=== PATIENT | female | born 1980 | race Caucasian/White ===

== ENCOUNTER 2019-06-08 00:16 | Inpatient (IN) | payer MEDICAID ==
[~2019-06-08] VITALS: Ht 162.6 cm; Wt 79.4 kg
[2019-06-08] MEDS ORDERED: ALBUTEROL SULF8.5 GM INH (00:32)
[2019-06-08] MEDS ORDERED: KEPPRA1000 MG PO (00:32)
[2019-06-08] MEDS ORDERED: TRILEPTAL600 MG PO (00:32)
[2019-06-08] MEDS ORDERED: DOXYCYCLINE HY100 M2 PO (00:32)
[2019-06-08 01:07] LABS: BASOPHILS 0.2 % (0-2); EOSINOPHILS 1.7 % (0-7); HEMATOCRIT 37.8 % (36.0-48.0); HEMOGLOBIN 13.2 g/dL (12-16); IMMATURE GRANULOCYTES 0.5 % (0-5); LYMPHOCYTES 14.1 % (15-50); MCH 30.6 pg (26.0-34.0); MCHC 34.9 g/dL (31.0-37.0); MCV 87.7 fL (80.0-100.0); MONOCYTES 5.5 % (2-11); PLATELET COUNT 346 10x3/uL (130-400); RBC 4.31 10x6/uL (4.00-5.40); RDW 12.2 % (11.5-14.5); WBC 8.1 10x3/uL (4.8-10.8)
[2019-06-08 01:13] LABS: APTT 30.4 SECONDS (22.8-39.4); INR 1.07 (0.85-1.17); PROTIME 13.4 SECONDS (11.6-15.0)
[2019-06-08 01:18] LABS: D-DIMER-QUANTITATIVE 0.63 ug/mLFEU (0.20-0.54)
[2019-06-08 01:28] LABS: ALBUMIN 3.6 g/dL (3.4-5.0); ALKALINE PHOSPHATASE 108 U/L (46-116); ALT (SGPT) 42 U/L (10-68); BILIRUBIN - TOTAL 0.44 mg/dL (0.2-1.3); CALC OSMOLALITY 262 mosm/kg (275-300); CALCIUM 8.4 mg/dL (8.5-10.1); CARBON DIOXIDE 28.9 mmol/L (21.0-32.0); CHLORIDE - SERUM 94 mmol/L (98-107); CKMB 0.2 U/L (0.0-3.6); CREATINE KINASE 85 UL (21-215); CREATININE - SERUM 0.6 mg/dL (0.6-1.3); GLUCOSE 101 mg/dL (74-106); PRO BNP 88 pg/mL (0-125); PROTEIN - SERUM 7.8 g/dL (6.4-8.2); SODIUM 133 mmol/L (136-145); UREA NITROGEN 3 mg/dL (7-18); eGFR NON AFRICAN AMERICAN > 90 mL/min (90-120)
[2019-06-08 01:29] LABS: TROPONIN-I < 0.017 ng/mL (0.000-0.060)
[2019-06-08 01:31] LABS: POTASSIUM - SERUM 2.6 mmol/L (3.5-5.1)
--- NOTE | 2019-06-08 03:41 | NUR ---
REC'D. TO ROOM 2109 VIA WC.02 2L NC SATS 96%.ENCOURAGED TO BREATH IN THRU NOSE OUT THRU MOUTH TO SLOW BREATHING AND HEART RATE DOWN WHICH IS 101 C/O SOME CHEST DISCOMFORT COUPLE DAYS PRIOR TO ADMISSION TIGHT FEELING WHEN COUGHING.NO DISTRESS OBSERVED AT PRESENT TIME.ON HANGING ZITHROMAX BECAME NAUSEATED NO EMESIS. STATES AFTER ABX WAS HUNG STARTED FEELING THIS WAY. ABX STOPPED. WITHIN 15MIN STATES FEELS SO MUCH BETTER.REPORTED TO ARIELLE MCDONALD. COOL CLOTH TO FOREHEAD.
[2019-06-08 03:44] VITALS: BP 127/72; BMI 30.2
[2019-06-08 04:56] VITALS: BP 105/61
[2019-06-08 06:23] LABS: BASOPHILS 0.1 % (0-2); EOSINOPHILS 0.3 % (0-7); HEMATOCRIT 35.9 % (36.0-48.0); HEMOGLOBIN 12.5 g/dL (12-16); IMMATURE GRANULOCYTES 0.7 % (0-5); LYMPHOCYTES 8.3 % (15-50); MCH 30.6 pg (26.0-34.0); MCHC 34.8 g/dL (31.0-37.0); MCV 87.8 fL (80.0-100.0); MEAN PLATELET VOLUME 10.1 fL (7.4-10.4); MONOCYTES 2.8 % (2-11); NEUTROPHILS 87.8 % (40-80); PLATELET COUNT 329 10x3/uL (130-400); RBC 4.09 10x6/uL (4.00-5.40); RDW 12.3 % (11.5-14.5); WBC 7.2 10x3/uL (4.8-10.8)
[2019-06-08 06:27] LABS: CALC OSMOLALITY 271 mosm/kg (275-300); CALCIUM 8.5 mg/dL (8.5-10.1); CARBON DIOXIDE 28.6 mmol/L (21.0-32.0); CHLORIDE - SERUM 100 mmol/L (98-107); CREATININE - SERUM 0.5 mg/dL (0.6-1.3); GLUCOSE 132 mg/dL (74-106); MAGNESIUM - SERUM 1.7 mg/dL (1.8-2.4); PHOSPHOROUS 3.5 mg/dL (2.5-4.9); POTASSIUM - SERUM 3.4 mmol/L (3.5-5.1); SODIUM 137 mmol/L (136-145); UREA NITROGEN 2 mg/dL (7-18); eGFR NON AFRICAN AMERICAN > 90 mL/min (90-120)
--- NOTE | 2019-06-08 08:18 | NUR ---
REPORT RECIEVED. PT SITTING HIGH FOWLERS IN BED. RR EVEN AND UNLABORED ON 2L NC. SHE HAS A L AC PIV INFUSING NS@125. BED LOCKED AND IN LOWEST POSITION, CALL LIGHT WITHIN REACH. WILL CTM
[2019-06-08 12:20] VITALS: BP 106/52
[2019-06-08 12:27] VITALS: BP 123/59
[2019-06-08 13:26] LABS: APPEARANCE CLEAR (CLEAR); BACTERIA FEW /hpf (NEGATIVE); BILIRUBIN NEGATIVE (NEGATIVE); COLOR YELLOW (YELLOW); EPITHELIAL CELLS 0-5 /hpf (0-5); GLUCOSE NEGATIVE (NEGATIVE); KETONE MODERATE mg/dL (NEGATIVE); MUCUS <1+ /lpf (NONE SEEN); NITRITE NEGATIVE (NEGATIVE); PROTEIN NEGATIVE (NEGATIVE); RED CELLS - URINE 0-5 /hpf (0-5); UROBILINOGEN NORMAL (NORMAL); WHITE CELLS - URINE RARE /hpf (NEGATIVE)
[2019-06-08 15:58] VITALS: BP 113/65
--- NOTE | 2019-06-08 16:10 | NUR ---
I have reviewed this patient and I concur with the Shift Assessment completed by the Licensed Practical Nurse today this shift.
--- NOTE | 2019-06-08 19:20 | NUR ---
REPORT RECEIVED, WILL CONTINUE POC. PATIENT IS AAOX4, UP IN ROOM. NO S/S OF DISTRESS NOTED, RR EVEN BUT LABORED ON 5L HI FLOW. PATIENT DENIES NEEDS AT THIS TIME. CL IN REACH, BED LOCKED AND LOWERED. WILL CTM.
[2019-06-08 20:39] VITALS: BP 122/67
[2019-06-09 00:15] VITALS: BP 121/75
--- NOTE | 2019-06-09 03:09 | NUR ---
I have reviewed this patient and I concur with the Shift Assessment completed by the Licensed Practical Nurse today this shift.
[2019-06-09 04:45] VITALS: BP 127/78
[2019-06-09 05:42] LABS: BASOPHILS 0.2 % (0-2); EOSINOPHILS 0 % (0-7); HEMATOCRIT 35.8 % (36.0-48.0); HEMOGLOBIN 11.8 g/dL (12-16); IMMATURE GRANULOCYTES 0.7 % (0-5); LYMPHOCYTES 10.8 % (15-50); MEAN PLATELET VOLUME 10.4 fL (7.4-10.4); MONOCYTES 4.7 % (2-11); NEUTROPHILS 83.6 % (40-80); PLATELET COUNT 358 10x3/uL (130-400); RBC 3.93 10x6/uL (4.00-5.40); RDW 12.8 % (11.5-14.5)
[2019-06-09 05:48] LABS: MCV 91.1 fL (80.0-100.0); WBC 9.9 10x3/uL (4.8-10.8)
[2019-06-09 06:20] LABS: CALC OSMOLALITY 278 mosm/kg (275-300); CALCIUM 8.3 mg/dL (8.5-10.1); CARBON DIOXIDE 27.8 mmol/L (21.0-32.0); CHLORIDE - SERUM 105 mmol/L (98-107); CREATININE - SERUM 0.6 mg/dL (0.6-1.3); GLUCOSE 145 mg/dL (74-106); PHOSPHOROUS 3.7 mg/dL (2.5-4.9); SODIUM 140 mmol/L (136-145); eGFR NON AFRICAN AMERICAN > 90 mL/min (90-120)
[2019-06-09 06:24] LABS: UREA NITROGEN 3 mg/dL (7-18)
[2019-06-09 07:50] VITALS: BP 112/65
--- NOTE | 2019-06-09 07:51 | NUR ---
PT AWAKE AND ORIENTED, C/O DIFFICULTY BREATHING. SHORTNESS OF BREATH EVIDENT WHEN PT TRIES TO SPEAK. OXYGEN SATS ARE FINE. NO OTHER COMPLAINTS/CONCERNS VOICED AT THIS TIME. CL IN REACH, SRX2.
--- NOTE | 2019-06-09 08:26 | NUR ---
PT STATES THAT SHE TAKES 900 OF KEPPERA A DAY AND THAT WE ARE NOT GIVING HER THE PERCISE DOSE. WILL REMEDY.
[2019-06-09 10:47] VITALS: BP 110/73
--- NOTE | 2019-06-09 12:48 | NUR ---
I have reviewed this patient and I concur with the Shift Assessment completed by the Licensed Practical Nurse today this shift.
[2019-06-09 15:14] VITALS: BP 125/71
[2019-06-09 20:30] VITALS: BP 111/68
[2019-06-10 00:15] VITALS: BP 122/73
[2019-06-10 04:18] VITALS: BP 114/62
--- NOTE | 2019-06-10 05:44 | NUR ---
IV D/C TO LEFT AC. CATHETER TIP INTACT. 22G IV STARTED TO RIGHT WRIST.
[2019-06-10 06:01] LABS: CALC OSMOLALITY 268 mosm/kg (275-300); CALCIUM 8.3 mg/dL (8.5-10.1); CHLORIDE - SERUM 101 mmol/L (98-107); CREATININE - SERUM 0.7 mg/dL (0.6-1.3); GLUCOSE 120 mg/dL (74-106); MAGNESIUM - SERUM 1.8 mg/dL (1.8-2.4); PHOSPHOROUS 3.1 mg/dL (2.5-4.9); POTASSIUM - SERUM 3.6 mmol/L (3.5-5.1); SODIUM 136 mmol/L (136-145); eGFR NON AFRICAN AMERICAN > 90 mL/min (90-120)
[2019-06-10 06:03] LABS: UREA NITROGEN 2 mg/dL (7-18)
[2019-06-10 06:57] LABS: BASOPHILS 0.2 % (0-2); EOSINOPHILS 0 % (0-7); HEMATOCRIT 34.6 % (36.0-48.0); HEMOGLOBIN 11.5 g/dL (12-16); IMMATURE GRANULOCYTES 1.5 % (0-5); LYMPHOCYTES 12.7 % (15-50); MCH 30.7 pg (26.0-34.0); MCHC 33.2 g/dL (31.0-37.0); MCV 92.3 fL (80.0-100.0); MEAN PLATELET VOLUME 10.9 fL (7.4-10.4); MONOCYTES 4.2 % (2-11); NEUTROPHILS 81.4 % (40-80); PLATELET COUNT 413 10x3/uL (130-400); RBC 3.75 10x6/uL (4.00-5.40); WBC 9.9 10x3/uL (4.8-10.8)
--- NOTE | 2019-06-10 07:03 | NUR ---
PT AWAKE AND ORIEITED, LYING INBED WHEN I WALKED IN. PT IS WORRIED ABOUT INCREASING THE RATE OF HER N/S D/T HER NEW RIGHT WRIST I/V. SHE THINKS IT WILL HURT AND REQUESTS WE WAIT TO INCREASE THE FLUID BACK TO ITS ORIGINAL MD ORDERED RATE. NO OTHER COMPLAINTS/CONCERNS, ALL QUESTIONS ANSWERED TO THE BEST OF MY ABILITY. CL IN REACH,SRX2.
[2019-06-10 09:10] VITALS: BP 115/69
[2019-06-10 12:00] VITALS: BP 108/50; BP 132/81; BP 142/85
--- NOTE | 2019-06-10 13:28 | NUR ---
PT HAS BEEN AMBULATING AROUND THE ROOM, STATES SHE'S FEELING A LOT BETTER TODAY BUT STILL TIRES OUT VERY EASILY. NO COMPLAINTS BUT WOULD LIKE TO GO HOME SOMEDAY SOON. NO CONCENRS OR QUESTIONS AT THIS ITME, NO FAMILY PRESENT. CL IN REACH, SRX2.
[2019-06-10 16:00] VITALS: BP 121/73
--- NOTE | 2019-06-10 18:24 | NUR ---
PT IS RESTING PEAEFULLY, NO SIGNS OR SYMPTOMS OF ACUTE DISTRESS NOTED AT THIS TIME. CL IN REACH, SRX2. NO FAMILY PRESENT
[2019-06-10 20:30] VITALS: BP 116/73
--- NOTE | 2019-06-11 01:28 | NUR ---
PT CALLED FOR ASSISTANCE, C/O PAIN AT PIV SITE TO RIGHT WRIST. 10 MINS AFTER ADMINISTRATION OF AZITHROMYCIN, RED STREAK NOTED UP INNER FOREARM. MEDICATION IMMEDIATELY STOPPED AND FLUSHED. RED HIVES NOTED AT PIV SITE. PT DENIES PAIN AFTER STOPPING IV AND BEING FLUSHED. DENIES ANY OTHER NEEDS AT THIS TIME. BED IN LOWEST POSITION, SR X2, CALL LIGHT WITHIN REACH. WILL CTM.
[2019-06-11 05:31] LABS: BASOPHILS 0.3 % (0-2); EOSINOPHILS 0 % (0-7); HEMATOCRIT 37.6 % (36.0-48.0); HEMOGLOBIN 12.4 g/dL (12-16); IMMATURE GRANULOCYTES 1.4 % (0-5); LYMPHOCYTES 16.2 % (15-50); MCH 30.3 pg (26.0-34.0); MCV 91.9 fL (80.0-100.0); MEAN PLATELET VOLUME 10.1 fL (7.4-10.4); MONOCYTES 4.7 % (2-11); NEUTROPHILS 77.4 % (40-80); PLATELET COUNT 369 10x3/uL (130-400); RBC 4.09 10x6/uL (4.00-5.40); WBC 7.8 10x3/uL (4.8-10.8)
[2019-06-11 05:58] LABS: CALC OSMOLALITY 269 mosm/kg (275-300); CALCIUM 8.5 mg/dL (8.5-10.1); CARBON DIOXIDE 28.2 mmol/L (21.0-32.0); CHLORIDE - SERUM 101 mmol/L (98-107); CREATININE - SERUM 0.6 mg/dL (0.6-1.3); GLUCOSE 109 mg/dL (74-106); SODIUM 136 mmol/L (136-145); eGFR NON AFRICAN AMERICAN > 90 mL/min (90-120)
[2019-06-11 06:02] LABS: PHOSPHOROUS 4.5 mg/dL (2.5-4.9); UREA NITROGEN 3 mg/dL (7-18)
--- NOTE | 2019-06-11 07:20 | NUR ---
RECIEVE REPORT. ALERT AND ORIENTED X4. SITTING UP IN BED. OXYGEN ON AT 4L NC. DENIES ANY NEEDS AT THIS TIME. CONTINUE PLAN OF CARE AND SAFETY PRECAUTIONS.
[2019-06-11 09:14] VITALS: BP 117/64
[2019-06-11 12:47] VITALS: BP 133/76
--- NOTE | 2019-06-11 13:04 | NUR ---
ALERT AND ORIENTED X4. SITTING UP IN BED. NOTIFY JORDEN CAMPBELL OF REACTION TO ZITHROMAX. ZITHROMAX DISCONTINUED. DENIES ANY NEEDS AT THIS TIME. CONTINUE PLAN OF CARE AND SAFETY PRECAUTIONS.
--- NOTE | 2019-06-11 17:46 | NUR ---
ALERT AND ORIENTED X4. SITTING UP IN BED. RT WRIST IV INFILTRATED. DC RT WRIST IV TIP INTACT. RESITE IV LT FA SUCCESSFUL X2 ATTEMPTS. RESTART IV FLUIDS ORDERED. DENIES ANY NEEDS. CONTINUE PLAN OF CARE AND SAFETY PRECAUTIONS.
[2019-06-11 18:21] VITALS: BP 115/70
--- NOTE | 2019-06-11 19:29 | NUR ---
RECEIVED REPORT. PT A&O X4. RR EVEN AND UNLABORED ON 2L NC. NO S/S OF DISTRESS NOTED AT THIS TIME. NO VOICED C/O OR CONCERNS AT THIS TIME. SRX2, CALL LIGHT IN REACH. WILL CTM.
[2019-06-11 20:00] VITALS: BP 111/67
[2019-06-12] VITALS: BP 99/64
[2019-06-12 04:00] VITALS: BP 105/66
[2019-06-12 06:22] LABS: BASOPHILS 0.2 % (0-2); EOSINOPHILS 0 % (0-7); HEMATOCRIT 39.6 % (36.0-48.0); IMMATURE GRANULOCYTES 1.7 % (0-5); LYMPHOCYTES 19.5 % (15-50); MCH 30.4 pg (26.0-34.0); MCHC 32.8 g/dL (31.0-37.0); MCV 92.5 fL (80.0-100.0); MEAN PLATELET VOLUME 9.9 fL (7.4-10.4); MONOCYTES 6.3 % (2-11); NEUTROPHILS 72.3 % (40-80); PLATELET COUNT 386 10x3/uL (130-400); RBC 4.28 10x6/uL (4.00-5.40); RDW 13.1 % (11.5-14.5); WBC 8.3 10x3/uL (4.8-10.8)
[2019-06-12 06:36] LABS: CALC OSMOLALITY 275 mosm/kg (275-300); CALCIUM 8.5 mg/dL (8.5-10.1); CARBON DIOXIDE 29.6 mmol/L (21.0-32.0); CHLORIDE - SERUM 104 mmol/L (98-107); CREATININE - SERUM 0.6 mg/dL (0.6-1.3); GLUCOSE 105 mg/dL (74-106); MAGNESIUM - SERUM 2.1 mg/dL (1.8-2.4); PHOSPHOROUS 4.1 mg/dL (2.5-4.9); POTASSIUM - SERUM 4.4 mmol/L (3.5-5.1); SODIUM 139 mmol/L (136-145); eGFR NON AFRICAN AMERICAN > 90 mL/min (90-120)
[2019-06-12 06:43] LABS: UREA NITROGEN 6 mg/dL (7-18)
--- NOTE | 2019-06-12 07:20 | NUR ---
RECIEVED REPORT. ALERT AND ORIENTED X4. SITTING UP IN BED. PRODUCTIVE COUGH. WHITE SPUTUM. DENIES ANY NEEDS AT THIS TIME. CONTINUE PLAN OF CARE AND SAFETY PRECAUTIONS.
[2019-06-12 07:38] VITALS: BP 122/72
[2019-06-12 11:24] VITALS: BP 123/75
--- NOTE | 2019-06-12 12:11 | NUR ---
ALERT AND ORIENTED X4. SITTING UP IN BED WATCHING TV. IV INFUSING ORDERED. DENIES ANY NEEDS AT THIS TIME. CONTINUE PLAN OF CARE AND SAFETY PRECAUTIONS.
[2019-06-12 15:06] VITALS: BP 125/68
--- NOTE | 2019-06-12 19:55 | NUR ---
REPORT RECIEVED AND ROUNDING COMPLETE. PATIENT SITTING IN BED IN HIGH FOWLERS POSITION. PATIENT STATES SHE IS FEELING A LITTLE BIT BETTER. PATIENT IS SHOWING NO S/SX OF DISTRESS A THIS TIME, PATIENT HAS A LEFT FOREARM PIV THAT IS PATENT AND SHOWING NO S/SX OF INFILTRATION AT THIS TIME. CALL LIGHT WITHIN REACH AND BED IN LOWEST LOCKED POSITION. PATIENT IS RECIEVING O2 VIA NASAL CANNULA AT 2L. PATIENT STATES SHE HAS NO NEEDS AT THIS TIME.
[2019-06-13 00:49] VITALS: BP 108/64
[2019-06-13 05:38] VITALS: BP 103/60
--- NOTE | 2019-06-13 06:03 | NUR ---
I have reviewed this patient and I concur with the Shift Assessment completed by the Licensed Practical Nurse today this shift.
--- NOTE | 2019-06-13 07:15 | NUR ---
RECIEVED REPORT. ALERT AND ORIENTED X4. SITTING UP IN BED. SOB WHEN TALKING. OXYGEN AT 2L NC O2 SAT 98%. DENIES ANY NEEDS AT THIS TIME. CONTINUE PLAN OF CARE AND SAFETY PRECAUTIONS.
[2019-06-13 07:59] VITALS: BP 111/54
[2019-06-13 11:45] VITALS: BP 113/70
[2019-06-13 12:30] LABS: CALC OSMOLALITY 277 mosm/kg (275-300); CARBON DIOXIDE 29.6 mmol/L (21.0-32.0); CHLORIDE - SERUM 102 mmol/L (98-107); CREATININE - SERUM 0.5 mg/dL (0.6-1.3); GLUCOSE 114 mg/dL (74-106); SODIUM 140 mmol/L (136-145); UREA NITROGEN 7 mg/dL (7-18); eGFR NON AFRICAN AMERICAN > 90 mL/min (90-120)
[2019-06-13 12:31] LABS: POTASSIUM - SERUM 5.2 mmol/L (3.5-5.1)
[2019-06-13 12:32] LABS: HEMATOCRIT 41.3 % (36.0-48.0); HEMOGLOBIN 13.4 g/dL (12-16); MCH 31.2 pg (26.0-34.0); MCHC 32.4 g/dL (31.0-37.0); MEAN PLATELET VOLUME 10.9 fL (7.4-10.4); PLATELET COUNT 417 10x3/uL (130-400); RBC 4.29 10x6/uL (4.00-5.40); RDW 13.3 % (11.5-14.5); WBC 9.5 10x3/uL (4.8-10.8)
[2019-06-13 12:33] LABS: MCV 96.3 fL (80.0-100.0)
[2019-06-13 13:27] LABS: LYMPHOCYTES 18 % (15-50); MONOCYTES 10 % (2-11); NEUTROPHILS 68 % (40-80); PLATELET ESTIMATE INCREASED; ROULEAUX OCC
[2019-06-13 14:28] VITALS: Ht 162.6 cm; Wt 79.4 kg
[2019-06-13 15:25] VITALS: BP 124/72
--- NOTE | 2019-06-13 17:34 | NUR ---
ALERT AND ORIENTED X4. SITTING UP IN BED. DENIES PAIN. O2 AT 2L NC. DENIES ANY NEEDS. CONTINUE PLAN OF CARE AND SAFETY PRECAUTIONS.
[2019-06-13 20:30] VITALS: BP 112/55
[2019-06-14 00:34] VITALS: BP 112/65
--- NOTE | 2019-06-14 03:16 | NUR ---
I have reviewed this patient and I concur with the Shift Assessment completed by the Licensed Practical Nurse today this shift.
[2019-06-14 04:31] VITALS: BP 106/53
[2019-06-14 05:15] LABS: BASOPHILS 0.2 % (0-2); EOSINOPHILS 0 % (0-7); HEMATOCRIT 41.1 % (36.0-48.0); HEMOGLOBIN 13.3 g/dL (12-16); IMMATURE GRANULOCYTES 1.9 % (0-5); LYMPHOCYTES 14.5 % (15-50); MCH 30.4 pg (26.0-34.0); MCHC 32.4 g/dL (31.0-37.0); MEAN PLATELET VOLUME 9.7 fL (7.4-10.4); NEUTROPHILS 79.4 % (40-80); PLATELET COUNT 334 10x3/uL (130-400); RBC 4.38 10x6/uL (4.00-5.40); RDW 13.3 % (11.5-14.5); WBC 9.3 10x3/uL (4.8-10.8)
[2019-06-14 05:24] LABS: CALC OSMOLALITY 275 mosm/kg (275-300); CALCIUM 8.9 mg/dL (8.5-10.1); CARBON DIOXIDE 30.8 mmol/L (21.0-32.0); CHLORIDE - SERUM 101 mmol/L (98-107); CREATININE - SERUM 0.6 mg/dL (0.6-1.3); GLUCOSE 124 mg/dL (74-106); MAGNESIUM - SERUM 2.2 mg/dL (1.8-2.4); MCV 93.8 fL (80.0-100.0); POTASSIUM - SERUM 4.6 mmol/L (3.5-5.1); SODIUM 138 mmol/L (136-145); eGFR NON AFRICAN AMERICAN > 90 mL/min (90-120)
[2019-06-14 05:31] LABS: UREA NITROGEN 10 mg/dL (7-18)
--- NOTE | 2019-06-14 06:55 | NUR ---
REPORT RECEIVED. SHE IS ALERT AND ORIENT ABLE TO VOICE NEEDS. O2 ON AT 2 L/M PER N/C. LEFT F/A WITH NS AT 40 CC/HR INFUSING WITH SITE CLEAR. CL IN REACH. BED IN LOWEST POSITION AND LOCKED. CAREPLAN REVIEW DONE WITH SAFETY PRECAUTIONS IN PLACE
[2019-06-14 09:36] VITALS: BP 104/68
--- NOTE | 2019-06-14 10:29 | MORECARE ---
CASE MANAGEMENT DISCHARGE SUMMARY PATIENT: SANG RODRIGUEZ UNIT: [id number] ADM DATE: 06/08/19 AGE: 38 : 84 SEX: F ROOM/BED: D.2110 AUTHOR: SUJATHA OLIVARES PHYSICIAN: REFERRING PHYSICIAN: HARDEEP PEÑA MD DATE OF SERVICE: 06/14/19 Discharge Plan Patient Name: SANG RODRIGUEZ [facility] [facility] 1980 Planned Disposition: Home Anticipated Discharge Date: 06/14/19 Discharge Date: Expected LOS: 6 Initial Reviewer: [email or web address] Initial Review Date: 06/08/2019 Generated: 06/14/19 11:29 am DCPIA - Discharge Planning Initial Assessment Updated by [email or web address]: Kristie Chase on 06/14/19 10:24 am * Is the patient Alert and Oriented? Yes * How many steps to enter\exit or inside your home? One * PCP Dr. Chapman - will be a new patient * Pharmacy [facility] 7 * Preadmission Environment Home with Family * ADLs Independent * List name and contact numbers for known caregivers / representatives who currently or will assist patient after discharge: Merly Sinclair - daughter - [phone] * Verbal permission to speak to the caregivers and representatives has been obtained from the patient. Yes * Community resources currently utilized None * Additional services required to return to the preadmission environment? No * Can the patient safely return to the preadmission environment? Yes * Has this patient been hospitalized within the prior 30 days at any hospital? No Patient Name: SANG RODRIGUEZ Page [id number] at 1029 All edits/amendments must be made on the electronic document DICTATION DATE: 06/14/19 1029 SKI TOW OPERATOR: TYLER 06/14/19 1029 RPT#: [id number] DC DATE: STATUS: ADM IN [facility] [address] [place] [address] END OF REPORT
--- NOTE | 2019-06-14 10:38 | MORECARE ---
CASE MANAGEMENT DISCHARGE SUMMARY PATIENT: SANG RODRIGUEZ UNIT: [id number] ADM DATE: 06/08/19 AGE: 38 : 84 SEX: F ROOM/BED: D.6780 AUTHOR: ELISE,DOC PHYSICIAN: REFERRING PHYSICIAN: HARDEEP PEÑA MD DATE OF SERVICE: 06/14/19 Discharge Plan Patient Name: SANG RODRIGUEZ Facility: [facility]:[place] : 1980 Planned Disposition: Home Anticipated Discharge Date: 06/14/19 Discharge Date: Expected LOS: 6 Initial Reviewer: [email or web address] Initial Review Date: 06/08/2019 Generated: 06/14/19 11:37 am Comments DCP- Discharge Planning Updated by [email or web address]: Kristie Chase on 06/14/19 9:[address] DC PLAN: Return home independently with her small children. ANTICIPATED DC NEEDS: Denied known dc needs. CM met with patient to complete initial dc planning assessment. CM educated patient on the CM role and verbal consent given by patient to complete assessment. CM verified patient's address, phone number, and emergency contact phone numbers. Patient lives at home independently with her children. At discharge patient plans to return home and feels this is a safe discharge. She stated she is ready to go home today and does not want to stay any longer. She stated she has small children she needs to get home to. She asked about affording her mediation as she is out of slots on her Medicaid and needs to have them increased. CM discussed the [employer] karely with her and she downloaded it on her phone. She is to see Dr. Chapman as a new patient on June 27. CM discussed availability of home health, rehab services, and medical equipment. Patient denied known discharge needs at this time. Patient reports her mother will transport her home at time of discharge. CM will continue to follow and will assist as needed with dc plans/needs. Kristie Chase RN, [facility] DCPIA - Discharge Planning Initial Assessment Updated by [email or web address]: Kristie Chase on 06/14/19 10:24 am * Is the patient Alert and Oriented? Yes * How many steps to enter\exit or inside your home? One * PCP Dr. Chapman - will be a new patient * Pharmacy [facility] 7 * Preadmission Environment Home with Family * ADLs Independent * List name and contact numbers for known caregivers / representatives who currently or will assist patient after discharge: Merly Sinclair - daughter - [phone] * Verbal permission to speak to the caregivers and representatives has been obtained from the patient. Yes * Community resources currently utilized None * Additional services required to return to the preadmission environment? No * Can the patient safely return to the preadmission environment? Yes * Has this patient been hospitalized within the prior 30 days at any hospital? No Last DP export: 06/14/19 9:29 Patient Name: SANG RODRIGUEZ Page 19599 at 1038 All edits/amendments must be made on the electronic document DICTATION DATE: 06/14/19 1037 FRONT END SOFTWARE ENGINEER: TYLER 06/14/19 1037 RPT#: [id number] DC DATE: STATUS: ADM IN [facility] [address] [place] [address] END OF REPORT
[2019-06-14 11:10] LABS: ANA REFLEX - DIRECT Negative (Negative)
[2019-06-14 12:22] VITALS: BP 116/67
--- NOTE | 2019-06-14 12:36 | NUR ---
PATIENT RESTING ROOM AIR SP02 97% WITH NO SOB NOTED. PATIENT AMBULATED IN HALLWAY WITH RT. ROOM AIR AMBULATING SP02 RANGED FROM 90-96%. PATIENT SAYS SHE "FEELS ABSOLUTELY FINE" WHILE WALKING HOWEVER, THIS WAS HER FIRST TIME TO AMBULATE IN THE HALLWAY SINCE ADMISSION. PATIENT SAYS SHE IS "MORE THAN READY TO GO HOME" AND BECAME TEARFUL TALKING TO ME. I HAVE EMPHASIZED TO SANG THE IMPORTANCE OF SITTING UP IN CHAIR AND WALKING IN ADDITION TO DEEP BREATHING AND COUGHING. RT WILL WALK WITH PATIENT AGAIN THIS AFTERNOON. ALSO ENCOURAGED PATIENT NOT TO PUT NASAL CANULLA BACK ON UNLESS DIRECTED TO DO SO BY STAFF. WILL CONTINUE TO MONITOR SP02.
[2019-06-14 16:00] VITALS: BP 112/73
[2019-06-14 20:21] VITALS: BP 110/75
--- NOTE | 2019-06-14 21:15 | NUR ---
PT SITTING UP IN BED ALERT AND ORIENTED X4. NO S/S OF DISTRESS AT THIS TIME. PT DENIES ANY PAIN OR NEEDS AT THIS TIME. 95% RA. BED LOW CALL LIGHT WITHIN REACH. WILL CONTINUE TO MONITOR.
[2019-06-15 00:13] VITALS: BP 107/60
--- NOTE | 2019-06-15 02:48 | NUR ---
PT RESTING IN BED WITH EYES CLOSED. NO S/S OF DISTRESS. BED LOW CALL LIGHT WITHIN REACH. WILL CONTINUE TO MONITOR.
[2019-06-15 04:45] VITALS: BP 110/68
[2019-06-15 05:56] LABS: BASOPHILS 0.1 % (0-2); EOSINOPHILS 0.1 % (0-7); HEMATOCRIT 40.3 % (36.0-48.0); HEMOGLOBIN 13.4 g/dL (12-16); IMMATURE GRANULOCYTES 1.9 % (0-5); LYMPHOCYTES 14.9 % (15-50); MCH 30.4 pg (26.0-34.0); MCHC 33.3 g/dL (31.0-37.0); MEAN PLATELET VOLUME 10.5 fL (7.4-10.4); MONOCYTES 5.7 % (2-11); NEUTROPHILS 77.3 % (40-80); PLATELET COUNT 375 10x3/uL (130-400); RBC 4.41 10x6/uL (4.00-5.40); RDW 13.3 % (11.5-14.5)
[2019-06-15 05:58] LABS: MCV 91.4 fL (80.0-100.0); WBC 12.2 10x3/uL (4.8-10.8)
[2019-06-15 06:24] LABS: CALC OSMOLALITY 258 mosm/kg (275-300); CALCIUM 8.9 mg/dL (8.5-10.1); CARBON DIOXIDE 27.7 mmol/L (21.0-32.0); CHLORIDE - SERUM 94 mmol/L (98-107); CREATININE - SERUM 0.5 mg/dL (0.6-1.3); GLUCOSE 108 mg/dL (74-106); POTASSIUM - SERUM 4.3 mmol/L (3.5-5.1); SODIUM 129 mmol/L (136-145); UREA NITROGEN 10 mg/dL (7-18); eGFR NON AFRICAN AMERICAN > 90 mL/min (90-120)
--- NOTE | 2019-06-15 07:00 | NUR ---
REPORT RECEIVED SHE IS ALERT SITTING SUPINE IN BED SHE HAS DRY COUGH NOTED. CL IN REACH DENIES ANY CURRENT NEEDS EXCEPT WANTS TO GO HOME. RESP EVEN WITHOUT LABOR. BED OM LOWEST POSITION AND LOCKED CAREPLAN REVIEW DONE WITH SAFETY PRECAUTIONS IN PLACE.
[2019-06-15 09:36] VITALS: BP 114/69
[2019-06-15] MEDS ORDERED: OMNICEF300 MG PO (10:30)
[2019-06-15] MEDS ORDERED: IPRAT-ALBUT 0.5-3 ML INH (10:30)
[2019-06-15] MEDS ORDERED: MUCINEX600 MG PO (10:31)
[2019-06-15] MEDS ORDERED: SINGULAIR10 MG PO (10:38)
[2019-06-15] MEDS ORDERED: PREDNISONE10 MG PO (10:39)
[2019-06-15] MEDS ORDERED: SYMBICORT 16010.2 GM INH (10:42)
--- NOTE | 2019-06-15 11:32 | NUR ---
DR MUELLER AGREES WITH ORDER TO DISCHARGE ORDER PUT IN
--- NOTE | 2019-06-15 12:06 | MORECARE ---
CASE MANAGEMENT DISCHARGE SUMMARY PATIENT: SANG RODRIGUEZ UNIT: [id number] ADM DATE: 06/08/19 AGE: 38 : 84 SEX: F ROOM/BED: D.1310 AUTHOR: ELISE,DOC PHYSICIAN: REFERRING PHYSICIAN: HARDEEP PEÑA MD DATE OF SERVICE: 06/15/19 Discharge Plan Patient Name: SANG RODRIGUEZ Facility: [facility]:[place] : 1980 Planned Disposition: Home Anticipated Discharge Date: 06/15/19 Discharge Date: Expected LOS: 7 Initial Reviewer: [email or web address] Initial Review Date: 06/08/2019 Generated: 06/15/19 1:06 pm Comments DCP- Discharge Planning Updated by [email or web address]: Kristie Chase on 06/14/19 9:[address] DC PLAN: Return home independently with her small children. ANTICIPATED DC NEEDS: Denied known dc needs. CM met with patient to complete initial dc planning assessment. CM educated patient on the CM role and verbal consent given by patient to complete assessment. CM verified patient's address, phone number, and emergency contact phone numbers. Patient lives at home independently with her children. At discharge patient plans to return home and feels this is a safe discharge. She stated she is ready to go home today and does not want to stay any longer. She stated she has small children she needs to get home to. She asked about affording her mediation as she is out of slots on her Medicaid and needs to have them increased. CM discussed the [employer] karely with her and she downloaded it on her phone. She is to see Dr. Chapman as a new patient on June 27. CM discussed availability of home health, rehab services, and medical equipment. Patient denied known discharge needs at this time. Patient reports her mother will transport her home at time of discharge. CM will continue to follow and will assist as needed with dc plans/needs. Kristie Chase RN, [facility] DCPIA - Discharge Planning Initial Assessment Updated by [email or web address]: Kristie Chase on 06/14/19 10:24 am * Is the patient Alert and Oriented? Yes * How many steps to enter\exit or inside your home? One * PCP Dr. Chapman - will be a new patient * Pharmacy [facility] 7 * Preadmission Environment Home with Family * ADLs Independent * List name and contact numbers for known caregivers / representatives who currently or will assist patient after discharge: Merly Sinclair - daughter - [phone] * Verbal permission to speak to the caregivers and representatives has been obtained from the patient. Yes * Community resources currently utilized None * Additional services required to return to the preadmission environment? No * Can the patient safely return to the preadmission environment? Yes * Has this patient been hospitalized within the prior 30 days at any hospital? No Last DP export: 06/14/19 9:38 Patient Name: SANG RODRIGUEZ Page [phone] at 1206 All edits/amendments must be made on the electronic document DICTATION DATE: 06/15/19 1206 TUB TENDER: TYLER 06/15/19 1206 RPT#: [id number] DC DATE: STATUS: ADM IN [facility] [address] [place] [address] END OF REPORT
--- NOTE | 2019-06-15 12:10 | NUR ---
PATIENT TO REFUSE THE FLU SHOT UPON DISCHARGE, STATES THAT SHE NEVER TAKES THEM. DR MUELLER IN THE ROOM AT THIS TIME OLGA IS TRYING TO TELL ME WHERE [facility] S[facility]. DR MUELLER STATES THAT HE WILL GET HER SOME SAMPLES OF SYMBICORT.
--- NOTE | 2019-06-15 12:14 | MORECARE ---
CASE MANAGEMENT DISCHARGE SUMMARY PATIENT: SANG RODRIGUEZ UNIT: [id number] ADM DATE: 06/08/19 AGE: 38 : 84 SEX: F ROOM/BED: D.0920 AUTHOR: ELISE,DOC PHYSICIAN: REFERRING PHYSICIAN: HARDEEP PEÑA MD DATE OF SERVICE: 06/15/19 Discharge Plan Patient Name: SANG RODRIGUEZ Facility: [facility]:[place] : 1980 Planned Disposition: Home Anticipated Discharge Date: 06/15/19 Discharge Date: Expected LOS: 7 Initial Reviewer: [email or web address] Initial Review Date: 06/08/2019 Generated: 06/15/19 1:14 pm Comments DCP- Discharge Planning Updated by [email or web address]: Kristie Chase on 06/14/19 9:[address] DC PLAN: Return home independently with her small children. ANTICIPATED DC NEEDS: Denied known dc needs. CM met with patient to complete initial dc planning assessment. CM educated patient on the CM role and verbal consent given by patient to complete assessment. CM verified patient's address, phone number, and emergency contact phone numbers. Patient lives at home independently with her children. At discharge patient plans to return home and feels this is a safe discharge. She stated she is ready to go home today and does not want to stay any longer. She stated she has small children she needs to get home to. She asked about affording her mediation as she is out of slots on her Medicaid and needs to have them increased. CM discussed the [employer] karely with her and she downloaded it on her phone. She is to see Dr. Chapman as a new patient on June 27. CM discussed availability of home health, rehab services, and medical equipment. Patient denied known discharge needs at this time. Patient reports her mother will transport her home at time of discharge. CM will continue to follow and will assist as needed with dc plans/needs. Kristie Chase RN, [facility] DCPIA - Discharge Planning Initial Assessment Updated by [email or web address]: Kristie Chase on 06/14/19 10:24 am * Is the patient Alert and Oriented? Yes * How many steps to enter\exit or inside your home? One * PCP Dr. Chapman - will be a new patient * Pharmacy [facility] 7 * Preadmission Environment Home with Family * ADLs Independent * List name and contact numbers for known caregivers / representatives who currently or will assist patient after discharge: Merly Sinclair - daughter - [phone] * Verbal permission to speak to the caregivers and representatives has been obtained from the patient. Yes * Community resources currently utilized None * Additional services required to return to the preadmission environment? No * Can the patient safely return to the preadmission environment? Yes * Has this patient been hospitalized within the prior 30 days at any hospital? No External Providers [facility] Next Contact Date: 06/15/2019 Service Request Date: Service Type: Resolution: Reviewer: Comments: Last DP export: 06/15/19 11:06 Patient Name: SANG RODRIGUEZ Page [phone] at 1214 All edits/amendments must be made on the electronic document DICTATION DATE: 06/15/191213 SALESPERSON PETS AND PET SUPPLIES: TYLER 06/15/19 121 RPT#: [id number] DC DATE: STATUS: ADM IN [facility] [address] [place] [address] END OF REPORT
--- NOTE | 2019-06-15 12:38 | MORECARE ---
CASE MANAGEMENT DISCHARGE SUMMARY PATIENT: SANG RODRIGUEZ UNIT: [id number] ADM DATE: 06/08/19 AGE: 38 : 84 SEX: F ROOM/BED: D.2110 AUTHOR: ELISE,DOC PHYSICIAN: REFERRING PHYSICIAN: HARDEEP PEÑA MD DATE OF SERVICE: 06/15/19 Discharge Plan Patient Name: SANG RODRIGUEZ Facility: [facility]:[place] : 1980 Planned Disposition: Home Anticipated Discharge Date: 06/15/19 Discharge Date: Expected LOS: 7 Initial Reviewer: [email or web address] Initial Review Date: 06/08/2019 Generated: 06/15/19 1:37 pm Comments DCP- Discharge Planning Updated by [email or web address]: Rubens Vickers on 06/15/19 11:[address] Patient Name: SANG RODRIGUEZ Encounter No: [id number] : 1980 Primary Insurance: MEDICAID [place] Anticipated DC Date: 06-15-2019 Planned Disposition: Home DCP follow-up note: CM RECEIVED ORDER FOR NEBULIZER, MET WITH PT IN ROOM, PROVIDED LISTING OF PROVIDERS, PT REQUESTED [facility] FOR NEBULIZER, CHOICE SIGNED. PT HAS RECEIVED TEXT OF MEDICATIONS FROM [facility] FOR DISCHARGE AND IS CHECKING WITH [facility] TO SEE IF THEY WILL BE MORE AFFORDABLE THERE. PT DENIES DISCHARGE NEEDS, REPORTS HER MOTHER WILL TRANSPORT HOME FOR DISCHARGE TODAY. CM CALLED [facility], , SPOKE TO ZEFERINO WHO TOOK NEBULIZER ORDER. CM FAXED NEBULIZER ORDERS TO [facility] AT [phone]. CM NOTIFIED PT WHO IS AWARE OF WHERE THE "WAREHOUSE" IS LOCATED AND WILL CEMETERY LABORER HER NEBULIZER ON THE WAY HOME. Rubens Vickers, CASE MANAGEMENT DCP- Discharge Planning Updated by [email or web address]: Kristie Chase on 06/14/19 9:[address] DC PLAN: Return home independently with her small children. ANTICIPATED DC NEEDS: Denied known dc needs. CM met with patient to complete initial dc planning assessment. CM educated patient on the CM role and verbal consent given by patient to complete assessment. CM verified patient's address, phone number, and emergency contact phone numbers. Patient lives at home independently with her children. At discharge patient plans to return home and feels this is a safe discharge. She stated she is ready to go home today and does not want to stay any longer. She stated she has small children she needs to get home to. She asked about affording her mediation as she is out of slots on her Medicaid and needs to have them increased. CM discussed the [employer] karely with her and she downloaded it on her phone. She is to see Dr. Chapman as a new patient on June 27. CM discussed availability of home health, rehab services, and medical equipment. Patient denied known discharge needs at this time. Patient reports her mother will transport her home at time of discharge. CM will continue to follow and will assist as needed with dc plans/needs. Kristie Chase RN, [facility] DCPIA - Discharge Planning Initial Assessment Updated by [email or web address]: Kristie Chase on 06/14/19 10:24 am * Is the patient Alert and Oriented? Yes * How many steps to enter\\exit or inside your home? One * PCP Dr. Chapman - will be a new patient * Pharmacy [facility] 7 * Preadmission Environment Home with Family * ADLs Independent * List name and contact numbers for known caregivers / representatives who currently or will assist patient after discharge: Merly Sinclair - daughter - [phone] * Verbal permission to speak to the caregivers and representatives has been obtained from the patient. Yes * Community resources currently utilized None * Additional services required to return to the preadmission environment? No * Can the patient safely return to the preadmission environment? Yes * Has this patient been hospitalized within the prior 30 days at any hospital? No Coverage Notice Reviewer: [email or web address] - Rubens Vickers Notice Issued Date-Time: 06/15/2019 11:40 Notice Type: Patient Choice Letter Notice Delivered To: Patient Relationship to Patient: Gear Tester Name: Delivery Method: HAND - Hand Delivered Nathalie Days: Prior Verbal Notification: Recipient Understood Notice: Yes Recipient Signature: Yes Med Rec Note Co-signed by Attending: Coverage Notice Comment: REYNA Finney DP export: 06/15/19 11:14 Patient Name: SANG RODRIGUEZ Page [phone] at 1238 All edits/amendments must be made on the electronic document DICTATION DATE: 06/15/19 1237 WATER MECHANIC: TYLER 06/15/19 1237 RPT#: [id number] DC DATE: STATUS: ADM IN [facility] [address] [place] [address] END OF REPORT
--- NOTE | 2019-06-15 13:15 | NUR ---
DISCHARGE INSTRUCTIONS EXPLAINED IN DETAIL, SALINE LOCK WAS REMOVED WITH CATH TIP INTACT. SHE KNOWS TO GO [employer] NEBULIZER AND WHERE ALL HER MEDICATIONS COME FROM DUE TO DIFFERENT PHARMACIES USED. RESP EVEN WITH LABOR SHE IS IN STABLE CONDITION WITH NO C/O, MOM IS HERE TO TRANSPORT HOME.
--- NOTE | 2019-06-15 13:21 | NUR ---
TRANSPORTED VIA W/C DOWN TO [facility] AT THIS TIME
[2019-06-15 21:06] LABS: MYCOPLASMA PNEUMO IGG 236 U/mL (0-99)
== END 2019-06-15 13:21 | disposition home or self-care (01) | DRG 193 ==
LOC: D.ER 00:16 → D.M2 01:17
PROVIDERS: Family Medicine; Family Medicine Adult Medicine; Internal Medicine Pulmonary Disease; ADMIT Internal Medicine Nephrology; ATTEND Internal Medicine Nephrology
DX: J18.1 Lobar pneumonia, unspecified organism (principal); J96.01 Acute respiratory failure with hypoxia; N17.9 Acute kidney failure, unspecified; E87.1 Hypo-osmolality and hyponatremia; J98.11 Atelectasis; J20.9 Acute bronchitis, unspecified; E87.6 Hypokalemia; E83.42 Hypomagnesemia; G40.909 Epilepsy, unspecified, not intractable, without status epilepticus; D64.9 Anemia, unspecified; K59.00 Constipation, unspecified